=== PATIENT | male | born 1950 ===

== ENCOUNTER 2018-09-04 07:45 | Day surgery (SDC) | payer MEDICARE ==
[~2018-09-04] VITALS: Ht 182.9 cm; Wt 140.6 kg
[~2018-09-04 07:45] MED LIST: Cymbalta20 MG PO; OXYACE5T PO; RANI150 PO
--- NOTE | 2018-09-04 10:40 | NUR ---
09/04/18 1040 [place] USED 10 CC NS TO LIFT POLYP
== END 2018-09-04 10:29 | disposition home or self-care (01) ==
LOC: ORSCSDS 07:45
PROVIDERS: Internal Medicine Gastroenterology
PROC: 0DBK8ZX Excision of Ascending Colon, Via Natural or Artificial Opening Endoscopic, Diagnostic (ICD-10-PCS; principal; 2018-09-04 09:15)
PROC: 0DBM8ZX Excision of Descending Colon, Via Natural or Artificial Opening Endoscopic, Diagnostic (ICD-10-PCS; principal; 2018-09-04 09:15)
PROC: 0DBL8ZX Excision of Transverse Colon, Via Natural or Artificial Opening Endoscopic, Diagnostic (ICD-10-PCS; principal; 2018-09-04 09:15)
DX: Z12.11 Encounter for screening for malignant neoplasm of colon (principal); D12.2 Benign neoplasm of ascending colon; D12.3 Benign neoplasm of transverse colon; D12.4 Benign neoplasm of descending colon; K62.1 Rectal polyp; G47.33 Obstructive sleep apnea (adult) (pediatric); Z87.891 Personal history of nicotine dependence; E66.01 Morbid (severe) obesity due to excess calories; Z68.41 Body mass index [BMI] 40.0-44.9, adult; Z79.899 Other long term (current) drug therapy; K57.30 Diverticulosis of large intestine without perforation or abscess without bleeding; K64.1 Second degree hemorrhoids
CPT/HCPCS: 88305; J2405; J7120

== ENCOUNTER 2025-04-05 06:43 | Day surgery (SDC) | payer OTHER ==
[~2025-04-05] VITALS: Ht 182.9 cm; Wt 135.2 kg
[2025-04-05] VITALS (9 sets, daily range): BP systolic 97–142; BP diastolic 61–90
[~2025-04-05 06:43] MED LIST changes: +ATOR10 PO; +LOSA25 PO; +MELO7.5 PO; +MOUNJARO12.5 MG/0. SC
[2025-04-05] MEDS ORDERED: CeFAZolin Sodium 3,000 MG in NS 100 ML IV SCH ×2 (07:20→16:00)
[2025-04-05] MEDS ORDERED: Chlorhexidine Mouth Care 15 ML UDC MT SCH (07:20)
[2025-04-05] MEDS ORDERED: Ropivacaine 0.5% HCl/Pf 123.125 MG,EPINEPHrine HCL 0.25 MG,Ketorolac Tromethamine 15 MG... INFIL SCH (07:20)
[2025-04-05] MEDS ORDERED: Tranexamic Acid 100 ML IV SCH (07:20)
[2025-04-05] MEDS ORDERED: Midazolam HCl 1MG / ML 2ML Vial ONE (08:14)
[2025-04-05] MEDS ORDERED: FentaNYL Citrate 50 MCG/ML 2 ML Injection ONE (08:15)
--- NOTE | 2025-04-05 08:15 | NUR ---
Ambulatory in Day SurgeryPre-Op teaching done. Pt verbalizes understanding. History, Chart, Medications and Allergies reviewed before start of procedure.Patient confirms NPO status and agrees with scheduled surgery. Patient reports completing Chlorhexadine shower X2 prior to admission to hospital.
[2025-04-05] MEDS ORDERED: Bupivacaine 0.75%/Dext 8.25% 2 ML Amp IT ONE (08:19)
[2025-04-05] MEDS ORDERED: Ondansetron HCl 2 MG / ML 2ML Vial ONE (09:04)
[2025-04-05] MEDS ORDERED: Dexamethasone Sod Phos 10 MG/ML 1ML VIAL ONE (09:04)
[2025-04-05] MEDS ORDERED: HYDROmorphone HCl/Pf 1MG SYR IV PRN ×2 (09:25→10:05)
[2025-04-05] MEDS ORDERED: Magnesium Hydroxide Conc 10 ML UDC PO PRN (09:30)
[2025-04-05] MEDS ORDERED: Metoclopramide HCl 5MG / ML 2ML Vial IV PRN (09:30)
[2025-04-05] MEDS ORDERED: Ondansetron HCl 2 MG / ML 2ML Vial IV PRN ×3 (09:35→10:05)
[2025-04-05] MEDS ORDERED: Labetalol HCL 5 MG/ML 4ML Injection (Single Dose) IV PRN (09:45)
[2025-04-05] MEDS ORDERED: FentaNYL Citrate 50 MCG/ML 2 ML Injection IV PRN ×3 (10:05)
[2025-04-05] MEDS ORDERED: Ketorolac Tromethamine 30mg Vial ONE (10:21)
--- NOTE | 2025-04-05 10:55 | NUR ---
ARRIVAL TO SURG FLOOR ADMITTED FOR R TKA. A&O x4, VSS, HRR, LUNGS CLEAR. INCISION SITE w/TEFLA, TEGADERM & ELVER WRAP, NO DRAINAGE NOTED. POLAR PACK IN PLACE. ABLE TO WIGGLE TOES & FEET. SNACKS & DRINKS GIVEN. FAMILY AT BEDSIDE, CALL LIGHT WITHIN REACH.
[2025-04-05] MEDS ORDERED: ASPI81CH PO (11:08)
[2025-04-05] MEDS ORDERED: Ketorolac Tromethamine 15mg Vial IV SCH (12:00)
--- NOTE | 2025-04-05 14:14 | NUR ---
DISCHARGE SUMMARY ADMITTED ON 04/05 FOR R TKA. A&O x4, VSS, HRR, LUNGS CLEAR. TOLERATING REGULAR DIET WELL. WORKED w/THERAPY, USES WALKER w/AMBULATION. INCISION w/TEFLA, TEGADERM & ELVER WRAP DRESSING, NO DRAINAGE, C/D/I. VOIDED SUCCESSFULLY. DISCHARGE INSTRUCTIONS REVIEWED & GIVEN. POLAR PACK SENT. ESCORTED OUT VIA WC.
[2025-04-06] MEDS ORDERED: TIRZEPATIDE 12.5 MG/0.5 ML SC SCH (09:00)
== END 2025-04-05 14:25 | disposition home or self-care (01) ==
LOC: ORSCMMR 06:43 → ORD 08:15 → SURS 10:56 → ORSCMMR 14:25
PROVIDERS: Orthopaedic Surgery
PROC: 0SRC0JA Replacement of Right Knee Joint with Synthetic Substitute, Uncemented, Open Approach (ICD-10-PCS; principal; 2025-04-05 08:15)
DX: M17.11 Unilateral primary osteoarthritis, right knee (principal); I10 Essential (primary) hypertension; J44.9 Chronic obstructive pulmonary disease, unspecified; E66.01 Morbid (severe) obesity due to excess calories; Z68.41 Body mass index [BMI] 40.0-44.9, adult; Z79.899 Other long term (current) drug therapy; Z79.85 Long-term (current) use of injectable non-insulin antidiabetic drugs
CPT/HCPCS: 73560-RT; 97110; 97116; 97162; A9270; C1776; J0166; J0690; J0735; J1100; J1885; J2250; J2405; J2704; J2795; J3010; J7120